=== PATIENT | male | born 1955 | race Caucasian/White ===

== ENCOUNTER 2017-08-19 12:15 | Emergency (ER) | payer OTHER ==
[~2017-08-19] VITALS: Ht 185.4 cm; Wt 91.2 kg
[2017-08-19 12:20] VITALS: TEMP 36.6; Ht 185.4 cm; Wt 91.2 kg
[2017-08-19] MEDS ORDERED: IBUPROFEN 600 MG TAB PO STA (12:28)
[2017-08-19] MEDS ORDERED: ACET-1256 PO (12:43)
--- NOTE | 2017-08-19 13:20 | DIAGNOSTIC IMAGING REPORT ---
R ANKLE MIN 3 VIEWS ROUTINE CLINICAL HISTORY: Right ankle pain status post trauma COMPARISON: None. DISCUSSION: There is a nondisplaced oblique fracture of the distal fibula. No tibial fractures are visualized. Corticated ossicles at the level of the medial malleolar tip are likely old. There is mild lateral soft tissue swelling. The ankle mortise appears intact. There is calcaneal spurring. IMPRESSION: Nondisplaced oblique fracture of the distal fibula. Electronically signed by: Drew Harry M.D. 08/19/2017 1:18 PM Dictated Date/Time: 08/19/2017 1:17 PM
--- NOTE | 2017-08-19 13:37 | EMERGENCY ROOM VISIT NOTE ---
ED Visit Note First contact with patient: 12:20 CHIEF COMPLAINT: Right ankle injury HISTORY OF PRESENT ILLNESS: This 62-year-old male patient sustained an injury to the right ankle with a twisting, inversion motion less than one hour ago when he slipped on the ice. Complains of swelling and pain. The patient is able to bear weight on the foot but with pain. Constant pain, moderate to severe, worse with movement, weight bearing, and the dependent position. No knee pain. The patient denies any prior injury to his right ankle. The patient has seen [facility] in the past. REVIEW OF SYSTEMS: 6 system review was performed and was negative unless stated otherwise in history of present illness. PMH: No prior significant ankle injury. The patient is generally healthy with no chronic medical problems or a history of major surgery. SOCIAL HISTORY: Patient lives denies tobacco use but admits to occasional alcohol use. PHYSICAL EXAM: Vital Signs: Were reviewed Reviewed Nurse's notes. GEN.: 62-year -old white male appears in no acute distress. MENTAL STATUS: Alert, oriented, and cooperative. RIGHT ANKLE: The ankle is swollen and tender over the lateral aspect but the skin is intact and there is no ligamentous instability. There is no deformity. The foot and toes are warm and well-perfused. Sensation to pain and light touch is intact. EMERGENCY DEPARTMENT COURSE: The patient was evaluated. The patient was given Motrin 600 mg by mouth for pain. Ice pack was applied to the ankle. X-ray of the right ankle was ordered interpreted by the radiologist and myself. DIAGNOSTICS:R ANKLE MIN 3 VIEWS ROUTINE CLINICAL HISTORY: Right ankle pain status post trauma COMPARISON: None. DISCUSSION: There is a nondisplaced oblique fracture of the distal fibula. No tibial fractures are visualized. Corticated ossicles at the level of the medial malleolar tip are likely old. There is mild lateral soft tissue swelling. The ankle mortise appears intact. There is calcaneal spurring. IMPRESSION: Nondisplaced oblique fracture of the distal fibula. Electronically signed by: Drew Harry M.D. 08/19/2017 1:18 PM Dictated Date/Time: 08/19/2017 1:17 PM The patient was informed of the findings. The patient was placed in Ortho- Glass splint . The patient refused the crutches. I informed the patient he should not drive while in the splint. Post-splinting the patient was neurovascularly intact. The patient was discharged home in stable condition. Please see nurse's note for discharge. The patient was very defiant and started walking on his cast before was dry and would not use crutches because he said he had some at home. He also told the nurse he was going to drive home. DIAGNOSIS: Right fibula fracture DISCHARGE INSTRUCTIONS: Ice and elevation as much as possible over the next 24 hours. Ibuprofen 600 mg every 6 hours with food for pain. Take [place] as needed for more severe pain. Do not drive while taking the [place]. Use crutches for ambulation and do not bear weight on the ankle until evaluated by orthopedics. Call [facility] as soon as possible for follow-up appointment. Current/Historical Medications Scheduled Acetaminophen (Tylenol), 1,000 MG PO UD Scheduled PRN Hydrocodone/Acetaminophen 5MG/325MG ([place] 5MG/325MG), 1-2 TABLET PO Q6 PRN for Pain Allergies Coded Allergies: No Known Allergies (Unverified , 08/19/17) Vital Signs Date Time Temp Pulse Resp B/P (MAP) Pulse Ox O2 Delivery O2 Flow Rate FiO2 08/19/17 12:20 36.6 55 20 144/91 98 Room Air Medications Administered Medications (Trade) Dose Ordered Sig/Delon Route Start Time Stop Time Status Last Admin Dose Admin Ibuprofen (Motrin Tab) 600 mg NOW STAT PO 08/19/17 12:28 08/19/17 12:30 DC 08/19/17 12:42 600 MG Departure Information Prescriptions Hydrocodone/Acetaminophen 5MG/325MG ([place] 5MG/325MG) Tab 1-2 TABLET PO Q6 Y for Pain, #20 TAB For Initial Treatment Prov: Keysha Elena PA-C 08/19/17 Referrals No Doctor, Assigned (PCP) Patient Instructions [facility]
[2017-08-19] MEDS ORDERED: HYDR-5688 PO (13:38)
[2017-08-19 13:48] VITALS: BP 158/99; PULSE 65; O2SAT 99
== END 2017-08-19 13:45 | disposition home or self-care (01) ==
LOC: C.EDB 12:17 → C.EDD 13:45
DX: S82.64XA Nondisplaced fracture of lateral malleolus of right fibula, initial encounter for closed fracture (principal); W18.49XA Other slipping, tripping and stumbling without falling, initial encounter

== ENCOUNTER → 2017-09-24 | Outpatient (CLI) | payer OTHER ==
[~2017-09-24] MED LIST: ACET-1256 PO; HYDR-5688 PO
== END | disposition home or self-care (01) ==
LOC: C.LAB1850 12:14
PROVIDERS: ATTEND Physician Assistant
DX: M10.9 Gout, unspecified (principal)